=== PATIENT | female | born 1985 | race Caucasian/White ===

== ENCOUNTER 2021-02-03 16:14 | Emergency (ER) | payer SELFPAY ==
[~2021-02-03] VITALS: Ht 167.6 cm; Wt 50.8 kg
[2021-02-03 16:25] VITALS: BP 93/63
--- NOTE | 2021-02-03 16:30 | NUR ---
pt bib sister c/o vaginal bleeding and abd pain 02/04. OX4. No sob noted, breathing even and unlabored. stable on room air. kept comfortable in bed. safety measures in place.
--- NOTE | 2021-02-03 16:50 | NUR ---
PIV INSERTED IN LAC G#22. GOOD BLOOD RETURN, INTACT, PATENT AND FLUSHING WELL
[2021-02-03 17:02] LABS: BASOPHILS % (AUTO) 0.3 % (0.0-2.0); EOSINOPHILS % (AUTO) 1.2 % (0.0-6.0); HEMATOCRIT 41 % (33-45); HEMOGLOBIN 13.7 g/dL (11.5-14.8); LYMPHOCYTES # (AUTO) 1.4 K/uL (0.8-4.8); LYMPHOCYTES % (AUTO) 19.1 % (20.0-44.0); MEAN CORPUSCULAR HGB CONC 33 g/dl (31.0-36.0); MEAN CORPUSCULAR VOLUME 93 fL (82-100); MONOCYTES # (AUTO) 0.7 K/uL (0.1-1.30); MONOCYTES % (AUTO) 9.2 % (2.0-12.0); NEUTROPHILS # (AUTO) 5.2 K/uL (1.8-8.9); NEUTROPHILS % (AUTO) 70.2 % (43.0-81.0); PLATELET COUNT (AUTO) 155 K/uL (150-450); RED BLOOD CELL COUNT(AUTO) 4.47 MIL/uL (4.0-5.2); WHITE BLOOD COUNT (AUTO) 7.4 K/uL (4.3-11.0)
[2021-02-03 17:09] LABS: CALCIUM, SERUM 8.7 mg/dL (8.5-10.1); POTASSIUM 3.1 mmol/L (3.5-5.1)
[2021-02-03] MEDS ORDERED: POTASSIUM CHLORIDE 20 MEQ TAB.PRT.SR PO ONE ×2 (17:30→17:43)
--- NOTE | 2021-02-03 17:40 | NUR ---
urine collected and send to lab
[2021-02-03 17:46] LABS: BILIRUBIN,URINE NEGATIVE (NEGATIVE); COLOR,URINE YELLOW (YELLOW); LEUKOCYTE ESTERASE ,URINE TRACE (NEGATIVE); NITRITE, URINE NEGATIVE (NEGATIVE); PH,URINE 6.5 (5.0-8.0); PROTEIN,URINE NEGATIVE (NEGATIVE); UGLUCOSE NEGATIVE (NEGATIVE)
[2021-02-03 17:54] LABS: BACTERIA,URINE 1+ /HPF (None Seen); SQUAMOUS EPITHELIAL CELL,UR Few /HPF (None Seen); WBC,URINE 21-50 /HPF (0-3)
--- NOTE | 2021-02-03 19:32 | NUR ---
pt taken to ct
[2021-02-03] MEDS ORDERED: CIPR-262 PO (19:58)
[2021-02-03] MEDS ORDERED: CEFTRIAXONE 1GM BAG (ER ONLY) 1 GM/50 ML PIGGYBACK IV ONE (20:00)
[2021-02-03] MEDS ORDERED: CEFTRIAXONE 1GM BAG (ER ONLY) 50 ML IV ONE (20:01)
--- NOTE | 2021-02-03 20:12 | NUR ---
ADDENDUM: Intravenous End Time Documentation: Rocephin 1 gram IVPB: start time: 2011 pm ; end time: 2041 pm IV site: L hand PIV # 22 Port # 1
--- NOTE | 2021-02-03 20:19 | NUR ---
MOTHER IN LAW NOT IN WAITING ROOM CALLED X 2.
--- NOTE | 2021-02-03 20:20 | NUR ---
WAITING FOR CT RESULTS.
--- NOTE | 2021-02-03 20:38 | NUR ---
CALLED RAD FOR RESULTS
--- NOTE | 2021-02-03 21:48 | NUR ---
PATEINT DISCHARGED INSTRUCTIONS GIVEN. LEFT IN STABLE CONDITION.
== END 2021-02-03 21:45 | disposition home or self-care (01) ==
LOC: ER 16:19
DX: N12 Tubulo-interstitial nephritis, not specified as acute or chronic (principal); Z88.6 Allergy status to analgesic agent
CPT/HCPCS: 36415; 74176; 76700; 76856; 80048; 81001; 83690; 84703; 85025; 87086; 96365; 99285; J0696